=== PATIENT | female | born 1955 | race Caucasian/White ===

== ENCOUNTER 2019-04-22 08:26 | Day surgery (SDC) | payer OTHER ==
[~2019-04-22 08:26] MED LIST: Buffered Lidocaine 0.9% SYRIN* 5 ML/SYR SYRINGE INTRADERM ONE; Buffered Lidocaine 1% SYRIN* 1 ML/SYRINGE INTRADERM ONE; Famotidine IV* 10 MG/ML 2 ML (20 mg) IV ONE; KETAMINE HCL* 50 MG/ML 10 ML VIAL ONE; Lactated Ringers 1000 ML Bag* 1,000 ML IV SCH; Lidocaine 2% PF * 5 ML VIAL ONE; Midazolam* 1 MG/ML 2 ML VIAL (2 MG) ONE; Propofol* 10 MG/ML 20 ML BTL ONE; Propofol* 500 MG/50 ML BTL ONE; fentaNYL* 50 MCG/ML 2 ML VIAL (100 MCG VIAL) ONE
[2019-04-22] MEDS ORDERED: Buffered Lidocaine 1% SYRIN* 1 ML/SYRINGE INTRADERM ONE (08:41)
[2019-04-22] MEDS ORDERED: Lidocaine 1% INJ* 10 MG/ML 30 ML SDV ONE (09:43)
[2019-04-22] MEDS ORDERED: Bupivacaine 0.5% W/EPI SDV* 30 ML VIAL ONE (09:43)
[2019-04-22] MEDS ORDERED: ceFAZolin 2 GM in NS PREMIX(*) 0 GM/0 ML BAG IVPB ONE (10:31)
[2019-04-22] MEDS ORDERED: Clindamycin 900 MG IVPREMIX(* 900 MG/50 ML SDV IV ONE (10:44)
[2019-04-22] MEDS ORDERED: oxyCODONE TAB* 5 MG TAB PO PRN (11:19)
[2019-04-22] MEDS ORDERED: Acetaminophen TAB* 325 MG PO PRN (11:19)
[2019-04-22] MEDS ORDERED: Naloxone* 0.4 MG/ML 1 ML VIAL IV PRN (11:19)
[2019-04-22] MEDS ORDERED: Ondansetron INJ* 2 MG/ML VIAL IV PRN (11:19)
[2019-04-22] MEDS ORDERED: Ketorolac INJ* 30 MG/ML 1 ML VIAL IV PRN (11:19)
[2019-04-22] MEDS ORDERED: fentaNYL* 50 MCG/ML 2 ML VIAL (100 MCG VIAL) IV PRN (11:19)
--- NOTE | 2019-04-22 12:01 | OP ---
Operative Report - Blank - Operative Report Date of Operation: 04/22/19 Note: Brief Operative Note Preop Dx: ventral incisional hernia Postop Dx: same Procedure: open repair ventral incisional hernia with mesh Anesthesia: local MAC Surgeon: Ernesto Lead Radiation Therapist: LEILA Jin Fluids: 1,000cc LR EBL: <10 cc Specimen: none Drains: none Findings: dictated
[2019-04-22] MEDS ORDERED: Ketorolac INJ* 30 MG/ML 1 ML VIAL ONE (12:27)
[2019-04-22] MEDS ORDERED: oxyCODONE TAB* 5 MG TAB ONE (12:40)
[2019-04-22] MEDS ORDERED: Ondansetron INJ* 2 MG/ML VIAL ONE (12:46)
[2019-04-22 13:37] VITALS: BP 135/75
--- NOTE | 2019-04-23 14:16 | OP ---
CC: Phuc Nolasco MD * DATE OF OPERATION: 04/22/19 - SDS DATE OF : 53 SURGEON: Kishor Orozco MD. [employer] SUPERVISOR: AMELIA Boyce. ANESTHESIOLOGIST: Dr. Russell. ANESTHESIA: Local MAC. PRE-OP DIAGNOSIS: Ventral incisional hernia. POST-OP DIAGNOSIS: Ventral incisional hernia. OPERATIVE PROCEDURE: Open repair of ventral incisional hernia with mesh. ESTIMATED BLOOD LOSS: Minimal. IV FLUIDS: Crystalloids. SPECIMENS: None. DRAINS: None. COMPLICATIONS: None. COUNTS: The instrument, needle and sponge counts were correct. DESCRIPTION OF PROCEDURE: The patient was brought to the operating room and placed on the table supine. Sequential compression devices were placed on both lower extremities. The patient was administered intravenous sedation. After prepping and draping the abdomen and after being administered intravenous antibiotics, time-out was performed. Local anesthetic was then infiltrated into the skin, soft tissue surrounding the area of the palpable hernia in the right upper quadrant. Incision was created and subcutaneous tissues were divided with cautery. Fatty mass was identified in the subcutaneous tissues herniating through a 1 cm defect with an adjacent 5 mm defect more superiorly. After freeing the herniated fat and reducing it, the bridge of fascial tissue was divided creating 1 large defect. In totality, this was about 2 cm. Initially, the repair was performed in a transverse primary closure with #1 Ethibond; however, the patient did cough and upon doing so the fat re-herniated. It was decided at this point to utilize a mesh and therefore, the Ventrio mesh medium size patch was selected. This was placed within the preperitoneal space and the mesh was sutured to the superior and inferior leaves of the fascia with #1 Ethibond and then the defect itself was closed with #1 Ethibond in interrupted fashion. The straps of the mesh were cut so that they retracted beneath the fascia and that was done prior to tying down the sutures. The tissues were irrigated and then closed in subcuticular fashion with 4-0 Monocryl. The patient tolerated the procedure well, was awakened, and transferred to Recovery in stable condition. [id number]/[facility] #: [id number] [facility]
== END 2019-04-22 13:34 | disposition home or self-care (01) ==
LOC: OR 08:26
PROVIDERS: ATTEND Surgery
DX: K43.2 Incisional hernia without obstruction or gangrene (principal); G47.33 Obstructive sleep apnea (adult) (pediatric); J45.909 Unspecified asthma, uncomplicated; Z87.891 Personal history of nicotine dependence; R73.03 Prediabetes; M19.90 Unspecified osteoarthritis, unspecified site; F41.8 Other specified anxiety disorders; K21.9 Gastro-esophageal reflux disease without esophagitis; K58.9 Irritable bowel syndrome, unspecified
CPT/HCPCS: A9270-GY; C1781; J0690; J1885; J2250; J2405; J2704; J3010

== ENCOUNTER 2021-01-14 09:30 | Observation (INO) ==
[~2021-01-14 09:30] MED LIST changes: -Buffered Lidocaine 0.9% SYRIN* 5 ML/SYR SYRINGE INTRADERM ONE; +Buffered Lidocaine 1% SYRIN 1 ml INTRADERM ONE; -Buffered Lidocaine 1% SYRIN* 1 ML/SYRINGE INTRADERM ONE; -Famotidine IV* 10 MG/ML 2 ML (20 mg) IV ONE; -KETAMINE HCL* 50 MG/ML 10 ML VIAL ONE; -Lactated Ringers 1000 ML Bag* 1,000 ML IV SCH; +Lactated Ringers 1000 ml BAG 1,000 ML IV SCH; -Lidocaine 2% PF * 5 ML VIAL ONE; -Midazolam* 1 MG/ML 2 ML VIAL (2 MG) ONE; -Propofol* 10 MG/ML 20 ML BTL ONE; -Propofol* 500 MG/50 ML BTL ONE; -fentaNYL* 50 MCG/ML 2 ML VIAL (100 MCG VIAL) ONE
[2021-01-21] MEDS ORDERED: Lactated Ringers 1000 ml BAG 1,000 ML IV SCH (06:00)
[2021-01-21] MEDS ORDERED: Buffered Lidocaine 1% SYRIN 1 ml INTRADERM ONE (06:00)
[2021-01-21] MEDS ORDERED: Ropivacaine 5 MG/ML 20 ML VIAL 0.5% (100 MG) ONE ×2 (11:08→13:04)
[2021-01-21] MEDS ORDERED: Clindamycin 900 MG/D5W BAG 900 MG/50 ML BAG IVPB ONE (11:32)
[2021-01-21] MEDS ORDERED: Dexamethasone IV 4 MG/ML VIAL 1 ml VIAL ONE ×2 (11:46→12:53)
[2021-01-21] MEDS ORDERED: Midazolam 5 mg/5 ml VIAL 1 mg/ml 5 ml VIAL (5 mg) ONE (11:46)
[2021-01-21] MEDS ORDERED: Ketamine HCL 50 mg/ml 10 ml VIAL (500 MG) ONE (12:46)
[2021-01-21] MEDS ORDERED: Lidocaine 2% PF 5 ML VIAL ONE (12:49)
[2021-01-21] MEDS ORDERED: Phenylephrine IV 10 MG/ML 1 ml VIAL ONE (12:51)
[2021-01-21] MEDS ORDERED: Ondansetron 4 mg VIAL 2 MG/ML 2 ml VIAL ONE (12:53)
[2021-01-21] MEDS ORDERED: Lidocaine 1% MPF 5 ML VIAL ONE (13:04)
[2021-01-21] MEDS ORDERED: Naloxone 0.4 mg VIAL 0.4 mg/ml 1 ml VIAL IV PRN (15:00)
[2021-01-21] MEDS ORDERED: Ondansetron 4 mg VIAL 2 MG/ML 2 ml VIAL IV PRN ×2 (15:00→15:57)
[2021-01-21] MEDS ORDERED: fentaNYL 100 mcg/2 ml 50 MCG/ML VIAL IV PRN (15:00)
[2021-01-21] MEDS ORDERED: Acetaminophen IV 1 GM/100ML 1,000 MG/100 ML VIAL IVPB PRN (15:00)
[2021-01-21] MEDS ORDERED: HYDROmorphone 1 MG/1 ML SYRINGE IV PRN (15:00)
[2021-01-21] MEDS ORDERED: Morphine 2 MG/ML SYRINGE IV PRN (15:57)
[2021-01-21] MEDS ORDERED: Lactulose 30 ml UDC PO PRN (15:57)
[2021-01-21] MEDS ORDERED: diPHENhydraMINE 25 mg TAB PO PRN (15:57)
[2021-01-21] MEDS ORDERED: diPHENhydraMINE IV 50 MG/ML 1 ml VIAL (BENADRYL) IV PRN (15:57)
[2021-01-21] MEDS ORDERED: Magnesium Hydroxide LIQ 30 ML UDC PO PRN (15:57)
[2021-01-21] MEDS ORDERED: Ondansetron ODT 4 mg TAB 4 MG TAB PO PRN (15:57)
[2021-01-21] MEDS ORDERED: BECLOMETHASONE DIPROPIONATE INTRANASAL PRN (16:08)
[2021-01-21] MEDS ORDERED: SIMETHICONE 125 MG PO PRN (16:08)
[2021-01-21] MEDS ORDERED: CARBOXYMETHYLCELLULOSE SODIUM BOTH EYES PRN (16:08)
[2021-01-21] MEDS: Lactated Ringers 1000 ml BAG 1,000 ML IV SCH (17:48)
[2021-01-21] MEDS ORDERED: Albuterol HFA INHALER 8 gm MDI INH PRN (19:02)
[2021-01-21] MEDS ORDERED: Dextran 70/Hypromellose Tears Eye Drops 15 ml BTL (for Artificials Tears) BOTH EYES PRN (19:06)
[2021-01-21] MEDS: Magnesium Hydroxide LIQ 30 ML UDC PO SCH (20:35)
[2021-01-21] MEDS: Clindamycin 600 MG/D5W BAG 600 MG/50 ML BAG IV SCH (22:39)
[2021-01-22] MEDS: Lactated Ringers 1000 ml BAG 1,000 ML IV SCH (04:17)
[2021-01-22 05:08] LABS: Hematocrit 36 % (35-47); Hemoglobin 12.5 g/dL (12.0-16.0); Mean Platelet Volume 8.2 fL (7.4-10.4); Platelet Count 231 10^3/uL (150-450)
[2021-01-22 05:28] LABS: BUN/Creatinine Ratio 27.3 (8-20); Calcium 8.9 mg/dL (8.6-10.3); EGFR African American 108.4 (>60); EGFR Non-African American 89.6 (>60); Potassium 4.1 mmol/L (3.5-5.0)
[2021-01-22] MEDS: Clindamycin 600 MG/D5W BAG 600 MG/50 ML BAG IV SCH ×2 (05:37→13:59)
[2021-01-22] MEDS: Magnesium Hydroxide LIQ 30 ML UDC PO SCH (08:00)
[2021-01-22] MEDS ORDERED: Pneumococcal Vac 23-Polyvalent IM ONE (08:00)
[2021-01-22] MEDS ORDERED: Vitamin THERAPEUTIC TAB PO SCH (09:00)
[2021-01-22] MEDS ORDERED: VORTIOXETINE 10 MG PO SCH (09:00)
[2021-01-22 12:40] VITALS: BP 105/51
== END 2021-01-22 17:17 | disposition home or self-care (01) ==
LOC: AA 01-21 11:21 → INTOOBSV 01-21 11:21 → SSU 01-21 17:42
PROVIDERS: ADMIT Orthopaedic Surgery Adult Reconstructive Orthopaedic Surgery; ATTEND Orthopaedic Surgery Adult Reconstructive Orthopaedic Surgery

== ENCOUNTER 2022-06-30 10:26 | Inpatient (IN) ==
[~2022-06-30 10:26] MED LIST changes: +Acetaminophen IV 1 GM/100ML 1,000 MG/100 ML BAG IV ONE; +Famotidine IV 10 MG/ML 2 ml VIAL (20 mg) IV ONE
[2022-06-30] MEDS ORDERED: Ondansetron 4 mg VIAL 2 MG/ML 2 ml VIAL ONE ×3 (10:36→18:31)
[2022-06-30] MEDS ORDERED: Lidocaine 2% PF 5 ML VIAL ONE (10:36)
[2022-06-30] MEDS ORDERED: Phenylephrine IV 10 MG/ML 1 ml VIAL ONE (10:36)
[2022-06-30] MEDS ORDERED: Bupivacaine 0.5% PF 10 ML SDV VIAL INJ ONE (10:36)
[2022-06-30] MEDS ORDERED: fentaNYL 100 mcg/2 ml 50 MCG/ML VIAL ONE ×3 (10:37→17:37)
[2022-06-30] MEDS ORDERED: Midazolam 2 mg/2 ml VIAL 1 mg/ml 2 ml VIAL (2 mg) ONE (10:37)
[2022-06-30] MEDS ORDERED: Clindamycin 900 MG/D5W BAG 900 MG/50 ML BAG IVPB ONE (10:49)
[2022-06-30] MEDS ORDERED: Famotidine IV 10 MG/ML 2 ml VIAL (20 mg) ONE (10:50)
[2022-06-30] MEDS ORDERED: Naloxone 0.4 mg VIAL 0.4 mg/ml 1 ml VIAL IV PRN (14:15)
[2022-06-30] MEDS ORDERED: Ondansetron 4 mg VIAL 2 MG/ML 2 ml VIAL IV PRN ×2 (14:15→16:39)
[2022-06-30] MEDS ORDERED: Propofol 10 MG/ML 20 ML BTL ONE (15:45)
[2022-06-30] MEDS ORDERED: Ondansetron ODT 4 mg TAB 4 MG TAB PO PRN (16:39)
[2022-06-30] MEDS ORDERED: Magnesium Hydroxide LIQ 30 ML UDC PO PRN (16:39)
[2022-06-30] MEDS ORDERED: Morphine 2 MG/ML SYRINGE IV PRN (16:39)
[2022-06-30] MEDS ORDERED: Lactulose 30 ml UDC PO PRN (16:39)
[2022-06-30] MEDS: fentaNYL 100 mcg/2 ml 50 MCG/ML VIAL IV PRN ×3 (16:49→17:39)
[2022-06-30] MEDS ORDERED: CARBOXYMETHYLCELLULOSE SODIUM 0.25% BOTH EYES PRN (16:52)
[2022-06-30] MEDS ORDERED: CARBOXYMETHYLCELLULOSE SODIUM 1% BOTH EYES PRN (16:52)
[2022-06-30] MEDS ORDERED: Albuterol HFA INHALER 8 gm MDI INH PRN (16:52)
[2022-06-30] MEDS ORDERED: Clindamycin 600 MG/D5W BAG 600 MG/50 ML BAG IV SCH (17:00)
[2022-06-30] MEDS: Lactated Ringers 1000 ml BAG 1,000 ML IV SCH (18:59)
[2022-06-30] MEDS: Magnesium Hydroxide LIQ 30 ML UDC PO SCH (20:07)
[2022-06-30] MEDS: Clindamycin 600 MG/D5W BAG 600 MG/50 ML BAG IV SCH (20:54)
[2022-06-30] MEDS: Cholecalciferol (VIT D3) 1,000 unit TAB PO SCH (20:58)
[2022-06-30] MEDS: CMC:Cyclosporine 0.05% OPHTH (NF) 0.4 ML VIAL BOTH EYES SCH (23:08)
[2022-06-30] MEDS: CMC:Olopatadine 0.1% OPHTH (NF) 1 DROP BTL BOTH EYES SCH (23:09)
[2022-06-30] MEDS: NON FORMULARY MED (Magnesium Glycinate 100 mg Tablet) PO SCH (23:09)
[2022-06-30] MEDS: WHITE PETROLATUM MINERAL OIL BOTH EYES SCH (23:09)
[2022-07-01] MEDS ORDERED: Lactated Ringers 1000 ml BAG 1,000 ML IV SCH (01:20)
[2022-07-01] MEDS: Lactated Ringers 1000 ml BAG 1,000 ML IV SCH ×2 (03:50→19:30)
[2022-07-01 05:38] LABS: Hematocrit 29 % (35-47); Hemoglobin 9.6 g/dL (12.0-16.0); Mean Platelet Volume 7.5 fL (7.4-10.4); Platelet Count 206 10^3/uL (150-450)
[2022-07-01] MEDS: Acetaminophen IV 1 GM/100ML 1,000 MG/100 ML BAG IV SCH ×2 (06:09→13:41)
[2022-07-01 06:15] LABS: Calcium 8.3 mg/dL (8.6-10.3); Potassium 4.3 mmol/L (3.5-5.0); eGFR CKD-EPI 91.6 (>60)
[2022-07-01] MEDS: Clindamycin 600 MG/D5W BAG 600 MG/50 ML BAG IV SCH ×2 (06:27→14:34)
[2022-07-01] MEDS ORDERED: [UNRECOGNIZED DRUG - OTHER] PO SCH (09:00)
[2022-07-01] MEDS ORDERED: FERROUS SULFATE PO SCH (09:00)
[2022-07-01] MEDS: Vitamin THERAPEUTIC TAB PO SCH (09:32)
[2022-07-01] MEDS: CMC:Cyclosporine 0.05% OPHTH (NF) 0.4 ML VIAL BOTH EYES SCH ×2 (09:33→21:22)
[2022-07-01] MEDS: Magnesium Hydroxide LIQ 30 ML UDC PO SCH ×2 (09:34→21:20)
[2022-07-01] MEDS: IRON PO SCH (09:35)
[2022-07-01] MEDS: MULTIVITAMIN MIN IRON FA VIT K PO SCH (09:35)
[2022-07-01] MEDS: [UNRECOGNIZED DRUG - OTHER] PO SCH (09:35)
[2022-07-01] MEDS: CMC:Olopatadine 0.1% OPHTH (NF) 1 DROP BTL BOTH EYES SCH ×2 (09:36→21:22)
[2022-07-01] MEDS: NON FORMULARY MED (Zinc 50 mg Tablet) PO SCH (09:37)
[2022-07-01] MEDS ORDERED: Lactated Ringers 1000 ml BAG 1,000 ML IV ONE (13:38)
[2022-07-01] MEDS: Cholecalciferol (VIT D3) 1,000 unit TAB PO SCH (21:21)
[2022-07-01] MEDS: WHITE PETROLATUM MINERAL OIL BOTH EYES SCH (22:51)
[2022-07-01] MEDS: NON FORMULARY MED (Magnesium Glycinate 100 mg Tablet) PO SCH (22:51)
[2022-07-02] MEDS: Acetaminophen IV 1 GM/100ML 1,000 MG/100 ML BAG IV SCH ×2 (01:28→05:54)
[2022-07-02] MEDS: Lactated Ringers 1000 ml BAG 1,000 ML IV SCH (05:54)
[2022-07-02 06:14] LABS: Hematocrit 22 % (35-47); Hemoglobin 7.3 g/dL (12.0-16.0); Mean Platelet Volume 7.6 fL (7.4-10.4); Platelet Count 163 10^3/uL (150-450)
[2022-07-02 06:44] LABS: Calcium 7.8 mg/dL (8.6-10.3); Potassium 3.9 mmol/L (3.5-5.0); eGFR CKD-EPI 95.4 (>60)
[2022-07-02] MEDS: Vitamin THERAPEUTIC TAB PO SCH (08:13)
[2022-07-02] MEDS: CMC:Cyclosporine 0.05% OPHTH (NF) 0.4 ML VIAL BOTH EYES SCH (08:13)
[2022-07-02] MEDS: IRON PO SCH (08:16)
[2022-07-02] MEDS: [UNRECOGNIZED DRUG - OTHER] PO SCH (08:16)
[2022-07-02] MEDS: MULTIVITAMIN MIN IRON FA VIT K PO SCH (08:16)
[2022-07-02] MEDS: CMC:Olopatadine 0.1% OPHTH (NF) 1 DROP BTL BOTH EYES SCH (08:16)
[2022-07-02] MEDS: Magnesium Hydroxide LIQ 30 ML UDC PO SCH (08:16)
[2022-07-02] MEDS: NON FORMULARY MED (Zinc 50 mg Tablet) PO SCH (08:17)
[2022-07-02 11:44] VITALS: BP 98/57
== END 2022-07-02 12:50 | disposition home or self-care (01) | DRG 470 ==
LOC: OR 10:26 → EDSTATUS 10:30 → SSU 18:17
PROVIDERS: ADMIT Orthopaedic Surgery Adult Reconstructive Orthopaedic Surgery; ATTEND Orthopaedic Surgery Adult Reconstructive Orthopaedic Surgery